=== PATIENT | female | born 1975 | race Caucasian/White ===

== ENCOUNTER 2016-12-08 01:38 | Emergency (ER) | payer SELFPAY ==
[~2016-12-08] VITALS: Ht 154.9 cm; Wt 78.0 kg
[2016-12-08 01:54] VITALS: Ht 154.9 cm; Wt 78.0 kg
== END 2016-12-08 02:49 | disposition left against medical advice (07) ==
LOC: E/R 01:38
DX: Z53.21 Procedure and treatment not carried out due to patient leaving prior to being seen by health care provider (principal)